=== PATIENT | female | born 2000 | race Caucasian/White ===

== ENCOUNTER → 2021-01-03 16:51 | Outpatient (CLI) | payer BC, SELFPAY ==
[2021-01-08 04:29] LABS: Chlamydia By Nucleic Acid AMP Negative (Negative)
[2021-01-08 14:41] LABS: Gonococcus By Nucleic Acid AMP Negative (Negative)
[2021-01-11 13:35] LABS: HPV APTIMA, High Risk Negative (Negative)
[2021-01-11 13:42] LABS: HPV Reflexed? YES, CHARGE PATIENT
== END ==
PROVIDERS: Referring Provider Nurse Practitioner Women's Health; Visit Provider Nurse Practitioner Women's Health
DX: Z12.4 Encounter for screening for malignant neoplasm of cervix (principal); Z20.2 Contact with and (suspected) exposure to infections with a predominantly sexual mode of transmission
CPT/HCPCS: 87491; 87591; 87624; 88175; G0145

== ENCOUNTER → 2023-12-24 | Outpatient (CLI) | payer BC, SELFPAY ==
[2024-01-01 11:44] LABS: HPV Reflexed? NOT INDICATED
== END | disposition home or self-care (01) ==
LOC: LABSPEC 14:12
PROVIDERS: Referring Provider Nurse Practitioner Women's Health; Visit Provider Nurse Practitioner Women's Health
DX: Z12.4 Encounter for screening for malignant neoplasm of cervix (principal)
CPT/HCPCS: 88175; G0145